=== PATIENT | female | born 1985 | race Two or more races ===

== ENCOUNTER 2024-07-10 16:23 | Emergency (ER) | payer OTHER ==
[~2024-07-10] VITALS: Ht 172.7 cm; Wt 78.0 kg
[2024-07-10 17:49] LABS: APPEARANCE,URINE CLEAR (CLEAR); BILIRUBIN,URINE NEGATIVE (NEGATIVE); BLOOD, URINE 2+ Ery/uL (NEGATIVE); COLOR,URINE YELLOW (YELLOW); KETONES,URINE NEGATIVE (NEGATIVE); LEUKOCYTE ESTERASE ,URINE NEGATIVE (NEGATIVE); NITRITE, URINE NEGATIVE (NEGATIVE); PROTEIN,URINE NEGATIVE (NEGATIVE); UGLUCOSE NEGATIVE (NEGATIVE); UROBILINOGEN,URINE 0.2 EU/dL (0.2)
[2024-07-10 17:54] LABS: BASOPHILS # (AUTO) 0.1 K/uL (0.0-0.2); BASOPHILS % (AUTO) 0.5 % (0.0-2.0); EOSINOPHILS # (AUTO) 0.2 K/uL (0.0-0.7); EOSINOPHILS % (AUTO) 1.7 % (0.0-6.0); HEMATOCRIT 38 % (33-45); LYMPHOCYTES # (AUTO) 2.7 K/uL (0.8-4.8); LYMPHOCYTES % (AUTO) 26.9 % (20.0-44.0); MEAN CORPUSCULAR HEMOGLOBIN 31 PG (26.0-33.0); MEAN CORPUSCULAR HGB CONC 34 g/dl (31.0-36.0); MEAN CORPUSCULAR VOLUME 90 fL (82-100); MONOCYTES # (AUTO) 0.7 K/uL (0.1-1.30); MONOCYTES % (AUTO) 7.5 % (2.0-12.0); NEUTROPHILS # (AUTO) 6.3 K/uL (1.8-8.9); NEUTROPHILS % (AUTO) 63.4 % (43.0-81.0); PLATELET COUNT (AUTO) 280 K/uL (150-450); RED BLOOD CELL COUNT(AUTO) 4.24 MIL/uL (4.0-5.2); RED CELL DISTRIBUTION WIDTH 13.3 % (11.5-15.0); WHITE BLOOD COUNT (AUTO) 9.9 K/uL (4.3-11.0)
[2024-07-10] MEDS ORDERED: ONDANSETRON HCL/PF 4 MG/2 ML VIAL ONE (18:01)
[2024-07-10] MEDS ORDERED: MORPHINE SULFATE INJ 4 MG/ML DISP.SYRIN ONE (18:02)
[2024-07-10 18:07] LABS: CALCIUM, SERUM 8.4 mg/dL (8.5-10.1); CREATININE 0.8 mg/dL (0.6-1.3); POTASSIUM 3.8 mmol/L (3.5-5.1)
[2024-07-10 18:10] LABS: ALBUMIN 3.6 g/dL (3.4-5.0); BILIRUBIN,DIRECT 0.1 mg/dL (0.0-0.2); BILIRUBIN,TOTAL 0.2 mg/dL (0.2-1.0); TOTAL PROTEIN, SERUM 6.9 g/dL (6.4-8.2)
[2024-07-10 18:12] LABS: ADD URINE CULTURE NO; BACTERIA,URINE Few /HPF (None Seen); PREGNANCY TEST URINE QUAL NEGATIVE (NEGATIVE); SQUAMOUS EPITHELIAL CELL,UR Few /HPF (None Seen); WBC,URINE 0-2 /HPF (0-3)
[2024-07-10] MEDS: ONDANSETRON HCL/PF 4 MG/2 ML VIAL IVP ONE (18:24)
[2024-07-10] MEDS: MORPHINE SULFATE INJ 2 MG/ML DISP.SYRIN IV ONE (18:26)
[2024-07-10] MEDS ORDERED: IOHEXOL-300 100 ML VIAL IV ONE (18:45)
[2024-07-10] MEDS ORDERED: IV NS 0.9% 250 ML IV ONE (18:46)
[2024-07-10] MEDS ORDERED: NAPR-1009 PO (21:39)
[2024-07-10] MEDS ORDERED: TRAM50TA2 PO (21:39)
[2024-07-10 21:47] VITALS: BP 101/72; TEMP 98.2; O2SAT 98
== END 2024-07-10 21:47 | disposition home or self-care (01) ==
LOC: ER 16:41
DX: N83.291 Other ovarian cyst, right side (principal); R10.31 Right lower quadrant pain; R30.0 Dysuria
CPT/HCPCS: 99285; 74177; 96374; 76856; 96375; 85025; 80048; 83690; 80076; 84703; 81001; 36415; J2270; J2405; J7050; Q9967

== ENCOUNTER 2025-07-13 00:43 | Emergency (ER) | payer OTHER ==
[~2025-07-13] VITALS: Ht 172.7 cm; Wt 77.1 kg
[~2025-07-13 00:43] MED LIST: NAPR-1009 PO; TRAM50TA2 PO
[2025-07-13] MEDS ORDERED: METOCLOPRAMIDE HCL 10 MG/2 ML VIAL ONE (01:53)
[2025-07-13] MEDS: IV NS 0.9% 1,000 ML BAG IV ONE (02:04)
[2025-07-13] MEDS: METOCLOPRAMIDE HCL 10 MG/2 ML VIAL IV ONE (02:04)
[2025-07-13 02:10] LABS: PLATELET COUNT (AUTO) 270 K/uL (150-450); RED BLOOD CELL COUNT(AUTO) 4.48 MIL/uL (4.0-5.2); RED CELL DISTRIBUTION WIDTH 13.2 % (11.5-15.0); WHITE BLOOD COUNT (AUTO) 10.1 K/uL (4.3-11.0)
[2025-07-13] MEDS ORDERED: CIPR7.5D9 RIGHT EAR (02:10)
[2025-07-13 02:18] LABS: CALCIUM, SERUM 8.2 mg/dL (8.5-10.1); CREATININE 0.5 mg/dL (0.6-1.3); SODIUM SERUM 142.0 mmol/L (136-145); UREA NITROGEN, BLOOD 14.0 mg/dL (7-18)
[2025-07-13] MEDS ORDERED: METO-295 PO (03:42)
[2025-07-13 04:24] VITALS: BP 118/72; TEMP 98.1; O2SAT 98
== END 2025-07-13 04:24 | disposition home or self-care (01) ==
LOC: ER 00:52
DX: R42 Dizziness and giddiness (principal); H60.91 Unspecified otitis externa, right ear; R11.2 Nausea with vomiting, unspecified; R10.20 Pelvic and perineal pain unspecified side
CPT/HCPCS: 99285; 96374; 70450; 96361; 93005; 85025; 80048; 36415; 84702; J2765; J7030